=== PATIENT | male | born 1995 | race Two or more races ===

== ENCOUNTER 2019-02-26 14:57 | Emergency (ER) | payer SELFPAY ==
[~2019-02-26] VITALS: Ht 193 cm; Wt 93.0 kg
[2019-02-26 15:06] VITALS: BP 141/75
== END 2019-02-26 15:44 | disposition home or self-care (01) ==
LOC: ER 14:57
DX: M54.5 Low back pain (principal); M54.2 Cervicalgia; J45.909 Unspecified asthma, uncomplicated; Z98.890 Other specified postprocedural states; V49.59XA Passenger injured in collision with other motor vehicles in traffic accident, initial encounter; Y93.89 Activity, other specified; Y92.413 State road as the place of occurrence of the external cause; Y99.8 Other external cause status